=== PATIENT | male | born 1965 | race African-American/Black ===

== ENCOUNTER 2017-08-30 08:12 | Emergency (ER) | payer SELFPAY ==
[2017-08-30 08:42] VITALS: BP 140/91
--- NOTE | 2017-08-30 08:51 | PHYS DOC ---
Past Medical History Past Medical History: No Pertinent History, Asthma, Bronchitis Past Surgical History: Knee Replacement Smoking: Cigarettes, Greater than 1 pack/day Additional Information: 1 ppd Alcohol Use: Occasionally Drug Use: None Adult General Chief Complaint Chief Complaint: SORE THROAT HPI HPI Patient is a pleasant 52-year-old male who is an avid smoker presents with a history of asthma and bronchitis and his main complaint today is sore throat and lymphadenopathy in the right side of his neck with dental pain. Patient admits he's had continuous right-sided throat and dental pain in the upper and lower molars has been continuous. He admits the pain is gotten progressively worse with hot and cold foods and chewing and direct pressure over those teeth. He's got no history of night sweats, weight loss, URI symptoms, cough, sick contacts. Patient denies any chest pain, abdominal pain or other symptoms. He also denies any change in voice anterior neck stiffness just pain over the lymph nodes on the right. He is not taking any medications to treat his pain is pain presently is a 6 of 10 Review of Systems Review of Systems Constitutional: Denies fever or chills [] Eyes: Denies change in visual acuity, redness, or eye pain [] HENT: Denies nasal congestion he does complain of mild sore throat neck pain on the right with dental discomfort. Respiratory: Denies cough or shortness of breath [] Cardiovascular: No additional information not addressed in HPI [] GI: Denies abdominal pain, nausea, vomiting, bloody stools or diarrhea [] : Denies dysuria or hematuria [] Musculoskeletal: Denies back pain or joint pain [] Integument: Denies rash or skin lesions [] Neurologic: Denies headache, focal weakness or sensory changes [] Endocrine: Denies polyuria or polydipsia [] Allergies Allergies Allergies Coded Allergies Type Severity Reaction Last Updated Verified No Known Drug Allergies 12/16/15 No Physical Exam Physical Exam Of the vital signs recorded on the chart at this time patient demonstrates no abnormality with the exception of borderline hypertension. Constitutional: Well developed, well nourished, no acute distress, non-toxic appearance. [] HENT: Normocephalic, atraumatic, bilateral external ears normal, oropharynx moist, no oral exudates, nose normal. [Patient has marked tenderness to palpation over tooth #3 and tooth #31. There is mild erosion to the dentition enamel likely reminiscent of dental caries. There is no gingival inflammation or swelling there is no erythema.] Eyes: PERRLA, EOMI, conjunctiva normal, no discharge. [] Neck: Normal range of motion,supple, no stridor. Patient has some anterior lymph nodes on the right that are large and tender only along the anterior cervical chain. [] Cardiovascular:Heart rate regular rhythm, no murmur [] Lungs & Thorax: Bilateral breath sounds clear to auscultation [] Skin: Warm, dry, no erythema, no rash. [] Neurologic: Alert and oriented X 3, normal motor function, normal sensory function, no focal deficits noted. [] Current Patient Data Vital Signs Vital Signs Date Time Temp Pulse Resp B/P (MAP) Pulse Ox O2 Delivery O2 Flow Rate FiO2 08/30/17 08:42 97.9 87 18 96 Room Air 97.9 EKG EKG [] Radiology/Procedures Radiology/Procedures [] Course & Med Decision Making Course & Med Decision Making Pertinent Labs and Imaging studies reviewed. (See chart for details) Patient complains of sore throat lymphadenopathy and dental problems likely suffering from dental caries. There is anterior lymphadenopathy is likely reactionary secondary to localized infection from the dental caries. There is no obvious signs of dental apical abscess or gingival abscess or buccal cellulitis. Patient has no evidence of otitis media, otitis externa, sinusitis, or peritonsillar abscess. There are no exudates on his tonsils he has had no documented fever but he has had an intermittent cough. The cough is likely secondary to smoking and intermittent bronchitis. His lungs today are clear. Provide him a dose of pro-air to go home with because he is out of his medications. []Impression: Dental caries, sore throat, medication refill Dragon Disclaimer Dragon Disclaimer This electronic medical record was generated, in whole or in part, using a voice recognition dictation system. Departure Departure Impression: Primary Impression: Dental caries limited to enamel Additional Impression: Reactive lymphadenopathy Disposition: 01 HOME, SELF-CARE Condition: STABLE Referrals: NO PCP (PCP) Patient Instructions: Dental Caries, Sore Throat Additional Instructions: My discharge plan Follow up: In addition patient is asked to followup with their primary doctor, within a week for followup examination and to address patient's ongoing medical conditions. Because patient does not have a regular medical doctor, a local physician Resource Sheet will be provided to establish care primary care. Patient is advised that in the Emergency Department primary complaints are addressed and only in light of known signs and symptoms. Patient should return immediately to the emergency department if new signs and symptoms develop or patient's condition worsens in any way. At time of discharge patient was in stable condition and had verbalized understanding of the discharge instructions. Scripts Hydrocodone Bit/Acetaminophen (HYDROCODONE-APAP 5-325 ) 1 Each Tablet 1-2 TAB PO PRN Q6HRS Y for PAIN for 5 Days, #10 TAB 0 Refills Prov: SHY CARLSON MD 08/30/17 Amoxicillin/Potassium Clav (AUGMENTIN 875-125 TABLET) 1 Each Tablet 1 TAB PO BID, #20 TAB Prov: SHY CARLSON MD 08/30/17 Albuterol Sulfate (PROAIR HFA INHALER) 8.5 Gm Hfa.aer.ad 1 PUFF INH PRN Q6HRS Y for SHORTNESS OF BREATH for 5 Days, INHALER 0 Refills Prov: SHY CARLSON MD 08/30/17 Problem Qualifiers SHY CARLSON MD Aug 30, 2017 08:51
[2017-08-30] MEDS ORDERED: HYDR-2758 PO (09:02)
[2017-08-30] MEDS ORDERED: PROAIR HFA8.5 GM INH (09:02)
[2017-08-30] MEDS ORDERED: AMOX1TAB61 PO (09:02)
== END 2017-08-30 09:10 | disposition home or self-care (01) ==
LOC: ER 08:12
DX: K02.61 Dental caries on smooth surface limited to enamel (principal); R59.0 Localized enlarged lymph nodes; J02.9 Acute pharyngitis, unspecified; J45.909 Unspecified asthma, uncomplicated; F17.210 Nicotine dependence, cigarettes, uncomplicated
CPT/HCPCS: 99283

== ENCOUNTER 2018-04-13 14:50 | Emergency (ER) | payer SELFPAY | END 2018-04-13 17:20 | disposition home or self-care (01) | LOC: ER 14:50 | DX: M75.52 Bursitis of left shoulder (principal); J45.909 Unspecified asthma, uncomplicated; F12.10 Cannabis abuse, uncomplicated; Z96.659 Presence of unspecified artificial knee joint | CPT/HCPCS: 73030; 99284 ==

== ENCOUNTER 2018-07-13 09:47 | Emergency (ER) | payer SELFPAY ==
[2018-07-13] MEDS: NEOMY/BACITR/POLYMYXIN OINT PACKET. TP (11:35)
[2018-07-13] MEDS: predniSONE 20 MG TABLET PO (11:35)
== END 2018-07-13 11:56 | disposition home or self-care (01) ==
LOC: ER 11:56
DX: M18.12 Unilateral primary osteoarthritis of first carpometacarpal joint, left hand (principal); J45.909 Unspecified asthma, uncomplicated; Z96.659 Presence of unspecified artificial knee joint
CPT/HCPCS: 73130; 99284; J7512

== ENCOUNTER 2019-11-12 13:38 | Emergency (ER) | payer SELFPAY ==
[~2019-11-12] VITALS: Ht 180.3 cm; Wt 90.7 kg
[~2019-11-12 13:38] MED LIST: ALBU2.5V8 INH; AMOX1TAB61 PO; HYDR-2761 PO; HYDR-3164 PO; METH4TAB2 PO; PRED20TA PO
[2019-11-12 14:50] VITALS: BP 148/88
--- NOTE | 2019-11-12 15:13 | PHYS DOC ---
Past Medical History Past Medical History: Asthma, Bronchitis Past Surgical History: Knee Replacement Alcohol Use: Occasionally Drug Use: Marijuana Adult General Chief Complaint Chief Complaint: COUGH HPI HPI Patient is a 54 year old male who presents with right upper back pain times months and right sided chest pain since he started his new job about a month ago. Patient states she's also had a cough for last 2 weeks. He states he's had chills at times. Patient does have a history of bronchitis and asthma and being a smoker. 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 He states has a sharp shooting pain that will calm and 2 from the right armpit area and to the chest. Review of Systems Review of Systems Constitutional: fever or chills [] Respiratory: cough and wheezing or denies shortness of breath [] Cardiovascular: Sharp shooting right chest pain Musculoskeletal: right upper back pain or joint pain [] All other systems were reviewed and found to be within normal limits, except as documented in this note. Allergies Allergies Allergies Coded Allergies Type Severity Reaction Last Updated Verified No Known Drug Allergies 12/16/15 No Physical Exam Physical Exam Constitutional: Well developed, well nourished, no acute distress, non-toxic appearance. [] HENT: Normocephalic, atraumatic, bilateral external ears normal, oropharynx moist, no oral exudates, nose normal. [] Eyes: PERRLA, EOMI, conjunctiva normal, no discharge. [] Neck: Normal range of motion, no tenderness, supple, no stridor. [] Cardiovascular:Heart rate regular rhythm, no murmur [] Lungs & Thorax: Bilateral breath sounds clear to auscultation [] Abdomen: Bowel sounds normal, soft, no tenderness, no masses, no pulsatile masses. [] Skin: Warm, dry, no erythema, no rash. [] Back: No tenderness, no CVA tenderness. [] Extremities: No tenderness, no cyanosis, no clubbing, ROM intact, no edema. [] Neurologic: Alert and oriented X 3, normal motor function, normal sensory function, no focal deficits noted. [] Psychologic: Affect normal, judgement normal, mood normal. [] Normal Physical Exam Current Patient Data Vital Signs Vital Signs Date Time Temp Pulse Resp B/P (MAP) Pulse Ox O2 Delivery O2 Flow Rate FiO2 12/13/19 14:50 97.8 77 19 148/88 (108) 98 Room Air 97.8 Lab Values Laboratory Tests Test 11/12/19 15:25 11/12/19 16:30 Influenza Type A Antigen Negative (NEGATIVE) Influenza Type B Antigen Negative (NEGATIVE) White Blood Count 5.3 x10^3/uL (4.0-11.0) Red Blood Count 5.13 x10^6/uL (4.30-5.70) Hemoglobin 15.4 g/dL (13.0-17.5) Hematocrit 43.0 % (39.0-53.0) Mean Corpuscular Volume 84 fL (79-100) Mean Corpuscular Hemoglobin 30 pg (25-35) Mean Corpuscular Hemoglobin Concent 36 g/dL (31-37) Red Cell Distribution Width 13.2 % (11.5-14.5) Platelet Count 226 x10^3/uL (140-400) Neutrophils (%) (Auto) 59 % (31-73) Lymphocytes (%) (Auto) 31 % (24-48) Monocytes (%) (Auto) 7 % (0-9) Eosinophils (%) (Auto) 2 % (0-3) Basophils (%) (Auto) 2 % (0-3) Neutrophils # (Auto) 3.1 x10^3/uL (1.8-7.7) Lymphocytes # (Auto) 1.6 x10^3/uL (1.0-4.8) Monocytes # (Auto) 0.4 x10^3/uL (0.0-1.1) Eosinophils # (Auto) 0.1 x10^3/uL (0.0-0.7) Basophils # (Auto) 0.1 x10^3/uL (0.0-0.2) Sodium Level 137 mmol/L (136-145) Potassium Level 4.0 mmol/L (3.5-5.1) Chloride Level 100 mmol/L (98-107) Carbon Dioxide Level 29 mmol/L (21-32) Anion Gap 8 (6-14) Blood Urea Nitrogen 12 mg/dL (8-26) Creatinine 1.0 mg/dL (0.7-1.3) Estimated GFR (Cockcroft-Gault) 93.9 BUN/Creatinine Ratio 12 (6-20) Glucose Level 97 mg/dL (70-99) Calcium Level 9.1 mg/dL (8.5-10.1) Total Bilirubin 0.5 mg/dL (0.2-1.0) Aspartate Amino Transferase (AST) 20 U/L (15-37) Alanine Aminotransferase (ALT) 24 U/L (16-63) Alkaline Phosphatase 91 U/L (46-116) Troponin I Quantitative < 0.017 ng/mL (0.000-0.055) Total Protein 8.4 g/dL (6.4-8.2) H Albumin 4.2 g/dL (3.4-5.0) Albumin/Globulin Ratio 1.0 (1.0-1.7) Laboratory Tests 11/12/19 16:30 Laboratory Tests 11/12/19 16:30 EKG EKG Sinus Rhythm and no STEMI[] Interpretation Time: [address] Hicks Radiology/Procedures Radiology/Procedures [] Impressions: [facility] [address] [place], [place] [id number] IMAGING REPORT Signed PATIENT: VEL SHARP ACCOUNT: [id number] : 1965 LOCATION: ER AGE: 54 SEX: M EXAM STATUS: REG ER ORD. PHYSICIAN: SOLOMON VIGIL APRN REASON: HX of Bronchitis, cough, chest pain PROCEDURE: CHEST PA & LATERAL CHEST PA LATERAL History: Cough and chest pain Comparison: 12/16/2015 2 view chest x-ray exam. Findings: Frontal and lateral views of the chest were obtained. The cardiomediastinal silhouette is normal. Pulmonary vasculature is normal. The lungs are clear. Calcified granulomas are present. No pleural effusion or pneumothorax is seen. There is no acute bone abnormality. IMPRESSION: No acute cardiopulmonary process. Electronically signed by: Ayaan Valentine MD (11/12/2019 3:22 PM) [facility] DICTATED and SIGNED BY: AYAAN VALENTINE MD DATE: 11/12/19 1522 Course & Med Decision Making Course & Med Decision Making No tenderness to the back. The pain is in the right per shoulder blade area of the back. Chest pain cannot be reproduced states it does hurt more with movement. Chest pain goes from the right axillary area and shoots into the right chest. Patient states that he will wheeze at times and has been diagnosed with bronchitis and asthma in the past. Patient's significant other states that he will not use his inhaler, she makes him. She states that he will be wheezing at times. Patient states he's had the chills but has not taken his temperature to check for fever. He has no other complaints. Lungs are clear to auscultation all lobes. Skin [place] warm and dry. No extremity swelling. Alert and oriented. Speaks in full clear sentences. Ambulatory with a steady gait. No respiratory distress. Patient denies shortness of breath, numbness or tingling, fever, abdominal pain, nausea, vomiting, dizziness, headache, visual changes, LOC, weakness. Chest x-ray shows no acute findings. EKG is sinus rhythm and no STEMI. After speaking with Dr Hicks about this patient and considering his symptoms it is best to work the patient up for chest pain. Blood work on unremarkable. I have referred the patient to a emergency management system director and a event sales assistant. Dragon Disclaimer Dragon Disclaimer This electronic medical record was generated, in whole or in part, using a voice recognition dictation system. The HEART Score for CP Pts HEART Score for Chest Pain: HEART Score for Chest Pain Response (Comments) Value History Slighlty/Non-Suspicious 0 ECG Normal 0 Age >45 - < 65 1 Risk Factors 1 or 2 Risk Factors 1 Troponin < Normal Limit 0 Total 2 Risk Factors: Risk Factors: DM, Current or recent (<one month) smoker, HTN, HLP, family history of CAD, obesity. Risk Scores: Score 0 - 3: 2.5% MACE over next 6 weeks - Discharge Home Score 4 - 6: 20.3% MACE over next 6 weeks - Admit for Clinical Observation Score 7 - 10: 72.7% MACE over next 6 weeks - Early Invasive Strategies Departure Departure Impression: Primary Impression: Chest pain Additional Impression: Cough Disposition: HOME, SELF-CARE Condition: STABLE Referrals: NO PCP (PCP) ALEXIA MARTIN MD, SABATO MD Patient Instructions: Asthma, Adult Additional Instructions: USE YOUR INHALER WHEN YOU BEGIN FEELING SHORT OF BREATH OR WHEEZING. STOP SMOKING. Scripts Albuterol Sulfate (PROAIR HFA INHALER) 8.5 Gm Hfa.aer.ad 1 PUFF INH PRN Q6HRS PRN for SHORTNESS OF BREATH, #1 INHALER 0 Refills Prov: SOLOMON VIGIL TALENT ACQUISITION PROGRAM MANAGER 11/12/19 Methylprednisolone (MEDROL) 4 Mg Tab.ds.pk 1 PKG PO UD, #1 PKG Prov: SOLOMON VIGIL APRN 11/12/19 Problem Qualifiers Primary Impression: Chest pain Chest pain type: unspecified Qualified Codes: R07.9 - Chest pain, unspecified SOLOMON VIGIL TALENT ACQUISITION PROGRAM MANAGER Nov 12, 2019 15:12
--- NOTE | 2019-11-12 15:24 | RAD ---
CHEST PA LATERAL History: Cough and chest pain Comparison: 12/16/2015 2 view chest x-ray exam. Findings: Frontal and lateral views of the chest were obtained. The cardiomediastinal silhouette is normal. Pulmonary vasculature is normal. The lungs are clear. Calcified granulomas are present. No pleural effusion or pneumothorax is seen. There is no acute bone abnormality. IMPRESSION: No acute cardiopulmonary process. Electronically signed by: Ayaan Diaz MD (11/12/2019 3:22 PM) [facility]
--- NOTE | 2019-11-12 15:34 | EKG ---
[facility] [address] [place] [address] Test Date: 2019-11-12 Test Time: 15:17:49 Pat Name: VEL SHARP Department: Room: Gender: M High Voltage Electrician: : 1965 Requested By: SOLOMON VIGIL Order Number: [id number] Reading MD: Measurements Intervals Bend Rate: 71 P: 52 AR: 202 QRS: -8 QRSD: 80 T: 41 QT: 352 QTc: 386 Interpretive Statements SINUS RHYTHM LEFTWARD AXIS OTHERWISE NORMAL ECG No previous ECG available for comparison
[2019-11-12 15:59] LABS: INFLUENZA A PATIENT NEGATIVE (NEGATIVE); INFLUENZA B PATIENT NEGATIVE (NEGATIVE)
[2019-11-12 16:37] LABS: BASO # 0.1 x10^3/uL (0.0-0.2); BASO % 2 % (0-3); EOS # 0.1 x10^3/uL (0.0-0.7); EOS % 2 % (0-3); HEMOGLOBIN 15.4 g/dL (13.0-17.5); LYMPH # 1.6 x10^3/uL (1.0-4.8); LYMPH % 31 % (24-48); MEAN CORPUSCULAR HEMOGLOBIN 30 pg (25-35); MEAN CORPUSCULAR HGB CONC 36 g/dL (31-37); MEAN CORPUSCULAR VOLUME 84 fL (79-100); MONO # 0.4 x10^3/uL (0.0-1.1); MONO % 7 % (0-9); NEUT # 3.1 x10^3/uL (1.8-7.7); NEUT % 59 % (31-73); PLATELET COUNT 226 x10^3/uL (140-400); RED BLOOD COUNT 5.13 x10^6/uL (4.30-5.70); RED CELL DISTRIBUTION WIDTH 13.2 % (11.5-14.5); WHITE BLOOD COUNT 5.3 x10^3/uL (4.0-11.0)
[2019-11-12 16:45] LABS: CALCIUM 9.1 mg/dL (8.5-10.1); GFR 93.9
[2019-11-12 16:50] LABS: ALBUMIN 4.2 g/dL (3.4-5.0); TOTAL BILIRUBIN 0.5 mg/dL (0.2-1.0); TOTAL PROTEIN 8.4 g/dL (6.4-8.2)
[2019-11-12] MEDS ORDERED: METH4TAB2 PO (17:08)
[2019-11-12] MEDS ORDERED: ALBU2.5V8 INH (17:08)
== END 2019-11-12 17:40 | disposition home or self-care (01) ==
LOC: ER 13:38
DX: R07.9 Chest pain, unspecified (principal); J45.909 Unspecified asthma, uncomplicated; F12.10 Cannabis abuse, uncomplicated
CPT/HCPCS: 36415; 71046; 80053; 84484; 85025; 87804; 93005; 99285-25

== ENCOUNTER 2020-09-29 14:47 | Emergency (ER) | payer SELFPAY ==
[~2020-09-29] VITALS: Ht 180.3 cm; Wt 90.9 kg
--- NOTE | 2020-09-29 15:33 | ED.ADGEN ---
Past Medical History Past Medical History: No Pertinent History, Asthma, Bronchitis Past Surgical History: Knee Replacement Smoking Status: Current Every Day Smoker Alcohol Use: None Drug Use: Marijuana General Adult EDM: Chief Complaint: NECK PAIN HPI: HPI: Patient is a 55 year old AA male who presents to the emergency department with complaints of neck, upper back, bilateral shoulder, and right upper arm pain after falling down approximately 6 steps last night. Patient reports he had been drinking alcohol and states that the fall was unwitnessed. Patient reports that he lost consciousness after he fell and there was a period of time after he regained consciousness that he was unable to move his entire body. Patient reports that he has vomited one time since the fall. He currently denies any nausea, abdominal pain, vision changes, headache, dizziness, numbness, tingling, or weakness of his extremities. He denies any low back pain, saddle anesthesia, or loss of bowel/bladder control. Patient currently rates his pain a 10 out of 10 on the pain scale, he reports that he took OxyContin approximately 5 hours prior to arrival but denies taking any other medications for relief of his pain. Review of Systems: Review of Systems: Complete ROS is negative unless otherwise noted in HPI. Allergies: Allergies: Allergies Coded Allergies Type Severity Reaction Last Updated Verified No Known Drug Allergies 12/16/15 No Physical Exam: PE: See Above Constitutional: Well developed, well nourished, no acute distress, non-toxic appearance. [] HENT: Normocephalic, bilateral external ears normal, oropharynx moist, no oral exudates, nose normal; 1+ edema and contusion/abrasion noted to patient's forehead [] Eyes: PERRLA, EOMI, conjunctiva normal, no discharge. [] Neck: Normal range of motion, no stridor; diffuse tenderness to palpation, in c- collar Cardiovascular:Heart rate regular rhythm Lungs & Thorax: Lungs CTA, chest nontender, respirations even and unlabored, no retractions, no respiratory distress Abdomen: soft, no tenderness Skin: Warm, dry, no rash; contusion/abrasion noted to patient's forehead Back: Upper thoracic paraspinal and spinal tenderness to palpation without obvious deformity or crepitus; lumbar spine nontender to palpation Extremities: Bilateral shoulders; diffuse tenderness to palpation without obvious deformity or crepitus, no cyanosis, no clubbing, ROM limited due to pain, no edema; right proximal humerus tenderness to palpation without crepitus or obvious deformity, no cyanosis, no edema; 2+ right radial pulse, cap refill less than 2 seconds Neurologic: Alert and oriented X 3, normal motor function, normal sensory function, no focal deficits noted. [] Psychologic: Affect normal, judgement normal, mood normal. [] Current Patient Data: Vital Signs: Vital Signs Date Time Temp Pulse Resp B/P (MAP) Pulse Ox O2 Delivery O2 Flow Rate FiO2 09/29/20 15:06 98.5 59 18 174/92 (119) 95 Room Air 98.5 EKG: EKG: [] Heart Score: Risk Factors: Risk Factors: DM, Current or recent (<one month) smoker, HTN, HLP, family history of CAD, obesity. Risk Scores: Score 0 - 3: 2.5% MACE over next 6 weeks - Discharge Home Score 4 - 6: 20.3% MACE over next 6 weeks - Admit for Clinical Observation Score 7 - 10: 72.7% MACE over next 6 weeks - Early Invasive Strategies Radiology/Procedures: Radiology/Procedures: PROCEDURE: CT HEAD AND CERVICAL SPINE WO Exam: CT head, cervical spine and thoracic spine without contrast INDICATION: Fall down 6 steps last night TECHNIQUE: Sequential axial images through the head, cervical spine and thoracic spine were obtained without the administration of IV contrast. Comparisons: None FINDINGS: Head: No focal parenchymal lesion or hemorrhage is identified. There is no midline shift or sulcal effacement. No acute vascular territory infarction is identified. Storey-white distinction is preserved. The ventricular system is within normal limits without compression hydrocephalus. The basal cisterns are well maintained. Extra cranial soft tissue scalp contusion overlying the left occipital region. The visualized portions of the paranasal sinuses and mastoid air cells are well-pneumatized. No acute fractures. Cervical spine: There is straightening of the cervical spine which may positional. Vertebral body heights are well-maintained. Fracture to the cervical spine is not identified. Multilevel spondylotic change in cervical spine with degenerative disc disease greatest at C3-C4, C4-C5 and C5-C6. Visualized paraspinal soft tissues are unremarkable. Thoracic spine: Vertebral body heights and alignment are well-maintained. Fracture to the thoracic spine is not identified. No significant spondylotic change identified in the thoracic spine. Visualized paraspinal soft tissues are unremarkable. IMPRESSION: 1. Extra cranial soft tissue scalp contusion overlying the left occipital region without underlying osseous or intracranial abnormality. 2. Negative CT C-spine for acute traumatic injury. 3. Negative CT T spine for acute traumatic injury. PROCEDURE: HUMERUS RIGHT EXAM: Right humerus, 2 views. HISTORY: Fall. COMPARISON: None. FINDINGS: 2 views of the right humerus are obtained. The proximal humerus is excluded from the [id number]. No fracture, dislocation or subluxation is seen. There is no periosteal reaction or lytic or sclerotic osseous lesion. IMPRESSION: No acute osseous finding. The proximal humerus is excluded from the [id number]-swpp, and included on the [id number] on shoulder radiographs obtained on the same date. PROCEDURE: SHOULDER BILAT 2+V Three views bilateral shoulder History: pain Internally and externally rotated AP of shoulder obtained, as well as "Y" view. The glenohumeral relationship is normal. The visualized osseous structures appear intact. There is mild inferior marginal spurring and under sloping in the AC joint bilaterally. Impression: Inferior marginal spurring and under sloping at the AC joint bilaterally. This could result in impingement when the patient abducts. No acute findings. End impression [] Course & Med Decision Making: Course & Med Decision Making Pertinent Labs and Imaging studies reviewed. (See chart for details) [] Mckinley Disclaimer: Mckinley Disclaimer: This electronic medical record was generated, in whole or in part, using a voice recognition dictation system. Departure Departure Impression: Primary Impression: Fall down steps Additional Impressions: Closed head injury with loss of consciousness of unknown duration Cervical strain, acute Bilateral shoulder pain Acute upper back pain Hypertension Disposition: 01 MI HOME SELF CARE/HOMELESS Condition: STABLE Referrals: NO PCP (PCP) Patient Instructions: Back Pain, Adult, [id number], Cervical Sprain, [id number], Head Injury, Adult, [id number], Hypertension, Aecy-mt-Mian Additional Instructions: Fill the prescription(s) and use as directed. Apply ice for to sore areas as needed for comfort. Activity as tolerated. You may also take Tylenol as needed for pain. Follow the head injury precautions provided, do not drink alcohol until you have been cleared by primary care doctor. Follow up with your primary care doctor in 1-2 days. Return to the ER if symptoms worsen. [facility] [address] [place] [address] [facility] [address] [place] [address] [facility] [address] [facility] [place] [address] [facility] [address] [place] [address] [facility] [address] [place] [address] [facility] [address] [place] [address] [facility] [place] [address] [place] [address] [facility] [address] [place] [address] [facility] [address] [place] [address] [facility] [address] [place] [address] Scripts Naproxen (NAPROXEN) 500 Mg Tablet 1 TAB PO BID PRN for PAIN for 10 Days, #20 TAB 0 Refills Prov: BELKIS AL APRN 09/29/20 Cyclobenzaprine Hcl (CYCLOBENZAPRINE HCL) 10 Mg Tablet 1 TAB PO TID PRN for MUSCLE PAIN for 10 Days, #30 TAB 0 Refills Prov: BELKIS AL APRN 09/29/20 Problem Qualifiers Primary Impression: Fall down steps Encounter type: initial encounter Qualified Codes: W10.8XXA - Fall (on) (from) other stairs and steps, initial encounter Additional Impressions: Cervical strain, acute Encounter type: initial encounter Qualified Codes: S16.1XXA - Strain of muscle, fascia and tendon at neck level, initial encounter Bilateral shoulder pain Chronicity: acute Qualified Codes: M25.511 - Pain in right shoulder; M25.512 - Pain in left shoulder Hypertension Hypertension type: unspecified Qualified Codes: I10 - Essential (primary) hypertension BELKIS AL APRN Sep 29, 2020 15:33
--- NOTE | 2020-09-29 16:21 | RAD ---
Exam: CT head, cervical spine and thoracic spine without contrast INDICATION: Fall down 6 steps last night TECHNIQUE: Sequential axial images through the head, cervical spine and thoracic spine were obtained without the administration of IV contrast. Comparisons: None FINDINGS: Head: No focal parenchymal lesion or hemorrhage is identified. There is no midline shift or sulcal effacement. No acute vascular territory infarction is identified. Sotrey-white distinction is preserved. The ventricular system is within normal limits without compression hydrocephalus. The basal cisterns are well maintained. Extra cranial soft tissue scalp contusion overlying the left occipital region. The visualized portions of the paranasal sinuses and mastoid air cells are well-pneumatized. No acute fractures. Cervical spine: There is straightening of the cervical spine which may positional. Vertebral body heights are well-maintained. Fracture to the cervical spine is not identified. Multilevel spondylotic change in cervical spine with degenerative disc disease greatest at C3-C4, C4-C5 and C5-C6. Visualized paraspinal soft tissues are unremarkable. Thoracic spine: Vertebral body heights and alignment are well-maintained. Fracture to the thoracic spine is not identified. No significant spondylotic change identified in the thoracic spine. Visualized paraspinal soft tissues are unremarkable. IMPRESSION: 1. Extra cranial soft tissue scalp contusion overlying the left occipital region without underlying osseous or intracranial abnormality. 2. Negative CT C-spine for acute traumatic injury. 3. Negative CT T spine for acute traumatic injury. Exposure: One or more of the following in the visualized dose reduction techniques were utilized for this examination: 1. Automated exposure control 2. Adjustment of the MA and/or KV according to patient size Use of iterative of reconstructive technique Electronically signed by: Kimmie Yu MD (09/29/2020 4:18 PM) [facility] [place]
--- NOTE | 2020-09-29 16:27 | RAD ---
EXAM: Right humerus, 2 views. HISTORY: Fall. COMPARISON: None. FINDINGS: 2 views of the right humerus are obtained. The proximal humerus is excluded from the [id number]. No fracture, dislocation or subluxation is seen. There is no periosteal reaction or lytic or sclerotic osseous lesion. IMPRESSION: No acute osseous finding. The proximal humerus is excluded from the [id number], and included on the [id number] on shoulder radiographs obtained on the same date. Electronically signed by: Dana Denny MD (09/29/2020 4:24 PM) [id number]
--- NOTE | 2020-09-29 16:29 | RAD ---
Three views bilateral shoulder History: pain Internally and externally rotated AP of shoulder obtained, as well as "Y" view. The glenohumeral relationship is normal. The visualized osseous structures appear intact. There is mild inferior marginal spurring and under sloping in the AC joint bilaterally. Impression: Inferior marginal spurring and under sloping at the AC joint bilaterally. This could result in impingement when the patient abducts. No acute findings. End impression Electronically signed by: Stephen Mcdonald III, MD (09/29/2020 4:26 PM) [facility]
[2020-09-29] MEDS ORDERED: CYCL10TA2 PO (17:23)
[2020-09-29] MEDS ORDERED: NAPR-514 PO (17:23)
[2020-09-29 17:35] VITALS: BP 156/84
== END 2020-09-29 17:35 | disposition home or self-care (01) ==
LOC: ER 14:47
DX: S16.1XXA Strain of muscle, fascia and tendon at neck level, initial encounter (principal); S06.2X1A Diffuse traumatic brain injury with loss of consciousness of 30 minutes or less, initial encounter; M54.6 Pain in thoracic spine; M54.2 Cervicalgia; M25.511 Pain in right shoulder; M25.512 Pain in left shoulder; I10 Essential (primary) hypertension; R60.0 Localized edema; J45.909 Unspecified asthma, uncomplicated; F12.90 Cannabis use, unspecified, uncomplicated; F17.200 Nicotine dependence, unspecified, uncomplicated; Z98.890 Other specified postprocedural states; W10.8XXA Fall (on) (from) other stairs and steps, initial encounter; Y93.89 Activity, other specified; Y92.89 Other specified places as the place of occurrence of the external cause; Y99.8 Other external cause status
CPT/HCPCS: 70450; 72125; 72128; 73060; 99285; 73030-50

== ENCOUNTER 2021-10-18 15:29 | Emergency (ER) | payer SELFPAY ==
[~2021-10-18] VITALS: Ht 180.3 cm; Wt 91.5 kg
[~2021-10-18 15:29] MED LIST changes: +CYCL10TA19 PO; +NAPR-514 PO
[2021-10-18 16:07] VITALS: BP 167/91
[2021-10-18] MEDS ORDERED: GUAI600T47 PO (16:15)
[2021-10-18] MEDS ORDERED: FLUT16SP NS (16:15)
--- NOTE | 2021-10-18 16:15 | PHYS DOC ---
Past Medical History Past Medical History: Asthma, Bronchitis, COPD Additional Past Medical Histor: Seasonal allergies Past Surgical History: Knee Replacement Smoking Status: Current Every Day Smoker Alcohol Use: Occasionally Drug Use: Marijuana General Adult EDM: Chief Complaint: COUGH HPI: HPI: Patient is a 56 year old male who presents with nasal congestion, cough, and throat discomfort. He reports a history of seasonal allergies, which have been bothering him the past few weeks. He reports the itching in his throat began about 2 weeks ago, but his nasal congestion just got worse yesterday. He reports associated mild headache and itching eyes. Patient denies fever, chills, shortness of breath, chest pain, palpitations. Review of Systems: Review of Systems: Constitutional: Denies fever or chills. Eyes: See HPI HENT: See HPI Respiratory: See HPI Cardiovascular: Denies chest pain or edema. GI: Denies abdominal pain, nausea, vomiting, bloody stools or diarrhea. : Denies dysuria or hematuria. Integument: Denies rash or other skin lesions. Neurologic: Denies focal weakness or sensory changes. Heart Score: C/O Chest Pain: No Allergies: Allergies: Allergies Coded Allergies Type Severity Reaction Last Updated Verified No Known Drug Allergies 10/18/21 No Physical Exam: PE: Constitutional: Well developed, well nourished, no acute distress, non-toxic appearance. HENT: Normocephalic, atraumatic, bilateral external ears normal, oropharynx moist, postnasal drip appreciated, bilateral nasal turbinates enlarged with moderate mucus in bilateral nares. Eyes: PERRLA, EOMI, conjunctiva normal, no discharge. Neck: Normal range of motion, no tenderness, supple, no stridor. Cardiovascular: Heart rate regular rhythm, no murmur. Lungs & Thorax: Bilateral breath sounds clear to auscultation. Course & Med Decision Making: Course & Med Decision Making Pertinent Labs and Imaging studies reviewed. (See chart for details) Patient history and presentation consistent with allergic rhinitis congestion. Patient will be treated with Flonase, Mucinex and instructed to use a humidifier at night. These treatments combined should help him clear his congestion and reduce inflammation. Patient instructed to follow-up with one of the primary care clinics and the pamphlet provided to him if his symptoms do not improve in the next week. He is advised that should he not be able to get into 1 of these clinics, he may return to the emergency department or visit urgent care. Patient understands and is agreeable to discharge plan. As patient was being discharged, rapid flu B came back positive. Patient was informed of findings and provided a work note. Patient inquired about Tamiflu. There is a joint decision to defer Tamiflu secondary to GI side effects of the medication. Dragon Disclaimer: Dragon Disclaimer: This electronic medical record was generated, in whole or in part, using a voice recognition dictation system. Departure Departure Impression: Primary Impression: Allergic rhinitis Qualified Codes: J30.9 - Allergic rhinitis, unspecified Additional Impression: Influenza B Disposition: HOME / SELF CARE / HOMELESS Condition: STABLE Referrals: NO PCP (PCP) Patient Instructions: Allergic Rhinitis, Influenza, Adult, [id number] Additional Instructions: As discussed, you should use Flonase, Mucinex and a humidifier daily. This should help thin and clear your congestion. If your symptoms do not improve in a week, you may follow-up with one of the primary care clinics provided, urgent care or you may return to the emergency department for reevaluation. Scripts Guaifenesin (MUCINEX) 600 Mg Tablet.er 1 TAB PO Q12HR for congestion for 7 Days, #14 TAB 0 Refills Prov: KASHIF BROWN 10/18/21 Fluticasone Propionate (FLUTICASONE PROPIONATE NASAL SPRAY) 16 Gm Fabius.susp 2 SPRAY NS DAILY, #1 BOTTLE 0 Refills Prov: KASHIF BROWN 10/18/21 KASHIF BROWN Oct 18, 2021 16:15
[2021-10-18 17:56] LABS: INFLUENZA A PATIENT NEGATIVE (NEGATIVE)
[2021-10-18 18:02] LABS: INFLUENZA B PATIENT POSITIVE (NEGATIVE)
--- NOTE | 2021-10-19 16:10 | NUR ---
IP: Informed pt of negative covid test. Pt verbalized understanding. Instructed to continue quarantine due to Influenza.
== END 2021-10-18 18:10 | disposition home or self-care (01) ==
LOC: ER 15:29
DX: U07.1 COVID-19 (principal); J10.1 Influenza due to other identified influenza virus with other respiratory manifestations; J44.9 Chronic obstructive pulmonary disease, unspecified; F17.200 Nicotine dependence, unspecified, uncomplicated
CPT/HCPCS: 87804; 99283; U0003; U0005

== ENCOUNTER 2022-04-15 07:19 | Emergency (ER) | payer OTHER, SELFPAY ==
[~2022-04-15] VITALS: Ht 180.3 cm; Wt 91.0 kg
[~2022-04-15 07:19] MED LIST changes: +FLUT16SP NS; +GUAI600T47 PO
[2022-04-15] MEDS ORDERED: ASPIRIN 325 MG TABLET PO ONE (07:45)
--- NOTE | 2022-04-15 07:46 | RAD ---
Exam Date: 04/15/2022 7:35 AM XR CHEST 1V Indication: Reason: CP / Spl. Instructions: / History: . Comparison: November 12, 2019 FINDINGS/ IMPRESSION: Mild bibasilar scarring and/or subsegmental atelectasis is noted. The cardiac silhouette and pulmonary vasculature are within normal limits. There is no focal consolidation, pleural effusion or pneumothorax. Electronically signed by: Ji Florez MD (04/15/2022 7:44 AM) [id number]
[2022-04-15 08:00] LABS: CALCIUM 8.4 mg/dL (8.5-10.1); CREATININE 1.1 mg/dL (0.7-1.3); GFR 83.5; POTASSIUM 4.3 mmol/L (3.5-5.1)
[2022-04-15 08:04] LABS: ALBUMIN 3.6 g/dL (3.4-5.0); ALBUMIN/GLOBULIN RATIO 0.9 (1.0-1.7); MAGNESIUM 2.1 mg/dL (1.8-2.4); TOTAL BILIRUBIN 0.4 mg/dL (0.2-1.0); TOTAL PROTEIN 7.5 g/dL (6.4-8.2)
[2022-04-15 08:31] LABS: BASO % 0 % (0-3); EOS # 0.1 x10^3/uL (0.0-0.7); EOS % 3 % (0-3); HEMATOCRIT 39.5 % (39.0-53.0); HEMOGLOBIN 14.1 g/dL (13.0-17.5); LYMPH # 1.2 x10^3/uL (1.0-4.8); LYMPH % 26 % (24-48); MEAN CORPUSCULAR HEMOGLOBIN 30 pg (25-35); MEAN CORPUSCULAR HGB CONC 36 g/dL (31-37); MEAN CORPUSCULAR VOLUME 84 fL (79-100); MONO # 0.4 x10^3/uL (0.0-1.1); MONO % 8 % (0-9); NEUT # 2.8 x10^3/uL (1.8-7.7); NEUT % 63 % (31-73); PLATELET COUNT 210 x10^3/uL (140-400); RED BLOOD COUNT 4.73 x10^6/uL (4.30-5.70); RED CELL DISTRIBUTION WIDTH 13.4 % (11.5-14.5); WHITE BLOOD COUNT 4.5 x10^3/uL (4.0-11.0)
--- NOTE | 2022-04-15 09:42 | PHYS DOC ---
Past Medical History Past Medical History: Asthma, Bronchitis, COPD Additional Past Medical Histor: Seasonal allergies Past Surgical History: No Surgical History Smoking Status: Current Every Day Smoker Alcohol Use: Heavy Additional Information: DRINKS 1 SHOT, 1 BEER DAILY Drug Use: Marijuana General Adult EDM: Chief Complaint: CHEST PAIN HPI: HPI: Patient is a 56 year old male with past medical history of asthma presents with right-sided chest pain that has been on and off for the last several years. Patient states he has been evaluated emergency department previously for chest pain. 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 He has not had any CAD or cardiac issues. He was told previously that COPD was a possible issue for him. Otherwise patient has no systemic symptoms. Patient states that he is doing fine otherwise. No exacerbation with physical activity. Review of Systems: Review of Systems: Constitutional: Denies fever or chills. [] Eyes: Denies change in visual acuity. [] HENT: Denies nasal congestion or sore throat. [] Respiratory: Denies cough or shortness of breath. [] Cardiovascular: + right sided chest pain or edema. [] GI: Denies abdominal pain, nausea, vomiting, bloody stools or diarrhea. [] : Denies dysuria. [] Musculoskeletal: Denies back pain or joint pain. [] Integument: Denies rash. [] Neurologic: Denies headache, focal weakness or sensory changes. [] Endocrine: Denies polyuria or polydipsia. [] Lymphatic: Denies swollen glands. [] Psychiatric: Denies depression or anxiety. [] Heart Score: C/O Chest Pain: Yes HEART Score for Chest Pain: HEART Score for Chest Pain Response (Comments) Value History Slighlty/Non-Suspicious 0 ECG Normal 0 Age >45 - < 65 1 Risk Factors 1 or 2 Risk Factors 1 Troponin < Normal Limit 0 Total 2 Risk Factors: Risk Factors: DM, Current or recent (<one month) smoker, HTN, HLP, family history of CAD, obesity. Risk Scores: Score 0 - 3: 2.5% MACE over next 6 weeks - Discharge Home Score 4 - 6: 20.3% MACE over next 6 weeks - Admit for Clinical Observation Score 7 - 10: 72.7% MACE over next 6 weeks - Early Invasive Strategies Current Medications: Current Medications Medications (Trade) Dose Ordered Sig/Sarah Start Time Stop Time Status Last Admin Dose Admin Aspirin (Ema Aspirin) 325 mg 1X ONCE 04/15/22 07:45 04/15/22 07:46 DC 04/15/22 07:48 325 MG Allergies: Allergies: Allergies Coded Allergies Type Severity Reaction Last Updated Verified No Known Drug Allergies 10/18/21 No Physical Exam: PE: Constitutional: Well developed, well nourished, no acute distress, non-toxic appearance. [] HENT: Normocephalic, atraumatic, bilateral external ears normal, oropharynx moist, no oral exudates, nose normal. [] Eyes: PERRLA, EOMI, conjunctiva normal, no discharge. [] Neck: Normal range of motion, no tenderness, supple, no stridor. [] Cardiovascular:Heart rate regular rhythm, no murmur, positive reproducible chest tenderness with palpation [] Lungs & Thorax: Bilateral breath sounds clear to auscultation [] Abdomen: Bowel sounds normal, soft, no tenderness, no masses, no pulsatile masses. [] Skin: Warm, dry, no erythema, no rash. [] Back: No tenderness, no CVA tenderness. [] Extremities: No tenderness, no cyanosis, no clubbing, ROM intact, no edema. [] Neurologic: Alert and oriented X 3, normal motor function, normal sensory func tion, no focal deficits noted. [] Psychologic: Affect normal, judgement normal, mood normal. [] Current Patient Data: Labs: Laboratory Tests Test 04/15/22 07:31 White Blood Count 4.5 x10^3/uL (4.0-11.0) Red Blood Count 4.73 x10^6/uL (4.30-5.70) Hemoglobin 14.1 g/dL (13.0-17.5) Hematocrit 39.5 % (39.0-53.0) Mean Corpuscular Volume 84 fL (79-100) Mean Corpuscular Hemoglobin 30 pg (25-35) Mean Corpuscular Hemoglobin Concent 36 g/dL (31-37) Red Cell Distribution Width 13.4 % (11.5-14.5) Platelet Count 210 x10^3/uL (140-400) Neutrophils (%) (Auto) 63 % (31-73) Lymphocytes (%) (Auto) 26 % (24-48) Monocytes (%) (Auto) 8 % (0-9) Eosinophils (%) (Auto) 3 % (0-3) Basophils (%) (Auto) 0 % (0-3) Neutrophils # (Auto) 2.8 x10^3/uL (1.8-7.7) Lymphocytes # (Auto) 1.2 x10^3/uL (1.0-4.8) Monocytes # (Auto) 0.4 x10^3/uL (0.0-1.1) Eosinophils # (Auto) 0.1 x10^3/uL (0.0-0.7) Basophils # (Auto) 0.0 x10^3/uL (0.0-0.2) Sodium Level 138 mmol/L (136-145) Potassium Level 4.3 mmol/L (3.5-5.1) Chloride Level 104 mmol/L (98-107) Carbon Dioxide Level 23 mmol/L (21-32) Anion Gap 11 (6-14) Blood Urea Nitrogen 25 mg/dL (8-26) Creatinine 1.1 mg/dL (0.7-1.3) Estimated GFR (Cockcroft-Gault) 83.5 BUN/Creatinine Ratio 23 (6-20) H Glucose Level 121 mg/dL (70-99) H Calcium Level 8.4 mg/dL (8.5-10.1) L Magnesium Level 2.1 mg/dL (1.8-2.4) Total Bilirubin 0.4 mg/dL (0.2-1.0) Aspartate Amino Transferase (AST) 20 U/L (15-37) Alanine Aminotransferase (ALT) 27 U/L (16-63) Alkaline Phosphatase 105 U/L (46-116) Troponin I High Sensitivity 6 ng/L (4-75) SK-Nme-A-Type Natriuretic Peptide 28 pg/mL (0-124) Total Protein 7.5 g/dL (6.4-8.2) Albumin 3.6 g/dL (3.4-5.0) Albumin/Globulin Ratio 0.9 (1.0-1.7) L Lipase 197 U/L (73-393) Thyroid Stimulating Hormone (TSH) 1.004 uIU/mL (0.358-3.74) Laboratory Tests 04/15/22 07:31 Laboratory Tests 04/15/22 07:31 Vital Signs: Vital Signs Date Time Temp Pulse Resp B/P (MAP) Pulse Ox O2 Delivery O2 Flow Rate FiO2 04/15/22 07:31 98.4 60 18 132/81 (98) 98 Room Air 98.4 EKG: EKG: Normal sinus rhythm, leftward axis deviation [] Radiology/Procedures: Radiology/Procedures: Chest x-ray within normal limits [] Impression: Costochondritis, atypical chest pain Course & Med Decision Making: Course & Med Decision Making Pertinent Labs and Imaging studies reviewed. (See chart for details) 56-year-old male with no cardiac history presents with right-sided chest pain. Patient nonsuspicious story, heart score of 2. Labs within normal limits, EKG normal, chest x-ray normal. Patient is 56 years old. No history of hypertension or diabetes. Explained and went over the findings with the patient, patient agrees to follow-up with primary care physician in no more than 1 week. Patient states that he has been disconnected from his primary care physician for some time now. Otherwise patient is stable, hemodynamically stable, patient's pain completely dissipated while he was in the emergency department. Patient states that he feels completely fine and normal. No intervention was given to stop chest pain. All questions answered, patient agreed with plan of action Mckinley Disclaimer: Mckinley Disclaimer: This electronic medical record was generated, in whole or in part, using a voice recognition dictation system. Departure Departure Impression: Primary Impression: Chest pain Additional Impression: Costochondritis Disposition: HOME / SELF CARE / HOMELESS Condition: GOOD Patient Instructions: Costochondritis, [id number] Additional Instructions: Follow-up with your primary care physician in 1 to 2 weeks You may return to the emergency department if you feel like you are having worsening symptoms. DONALD DIAZ MD April 15, 2022 09:42
[2022-04-15 10:16] VITALS: BP 129/65
--- NOTE | 2022-04-16 07:46 | EKG ---
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
== END 2022-04-15 10:17 | disposition home or self-care (01) ==
LOC: ER 07:19
DX: M94.0 Chondrocostal junction syndrome [Tietze] (principal); J44.9 Chronic obstructive pulmonary disease, unspecified; F17.200 Nicotine dependence, unspecified, uncomplicated
CPT/HCPCS: 36415; 71045; 80053; 83690; 83735; 83880; 84443; 84484; 85025; 93005; 99285-25